=== PATIENT | female | born 1990 | race African-American/Black ===

== ENCOUNTER 2022-02-23 15:42 | Emergency (ER) | payer OTHER ==
[~2022-02-23] VITALS: Ht 157.5 cm; Wt 111.6 kg
[2022-02-23 15:42] VITALS: BP 187/104
[2022-02-23] MEDS ORDERED: LORAZEPAM 0.5 MG TABLET PO ONE (16:30)
[2022-02-23] MEDS ORDERED: LORAZEPAM 0.5 MG TABLET ONE (16:52)
[2022-02-23] MEDS ORDERED: LORA-259 PO ×2 (17:01→17:04)
== END 2022-02-23 17:22 | disposition home or self-care (01) ==
LOC: ER 15:53
DX: F41.9 Anxiety disorder, unspecified (principal); G47.00 Insomnia, unspecified; I10 Essential (primary) hypertension; Z79.899 Other long term (current) drug therapy

== ENCOUNTER 2022-02-25 11:38 | Emergency (ER) | payer OTHER ==
[~2022-02-25] VITALS: Ht 157.5 cm; Wt 113.4 kg
[~2022-02-25 11:38] MED LIST: LORA-259 PO
[2022-02-25] MEDS ORDERED: OLANZAPINE ZYDIS 5 MG TAB.RAPDIS PO ONE (12:00)
[2022-02-25] MEDS ORDERED: OLANZAPINE 5 MG TABLET ONE (12:10)
[2022-02-25 13:53] VITALS: BP 155/90
--- NOTE | 2022-02-25 13:53 | NUR ---
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
--- NOTE | 2022-02-25 13:53 | NUR ---
Pt given all MD ordered meds, no adverse side effects noted, given warm blanket and dim lights for comfort
--- NOTE | 2022-02-25 13:54 | NUR ---
pt D/C and transferred out , stable , ambulating stating she will call her mom for comfort
== END 2022-02-25 13:56 | disposition home or self-care (01) ==
LOC: ER 11:40
DX: F41.9 Anxiety disorder, unspecified (principal); I10 Essential (primary) hypertension; Z60.2 Problems related to living alone; Z79.899 Other long term (current) drug therapy

== ENCOUNTER 2022-03-06 12:04 | Emergency (ER) | payer OTHER ==
[~2022-03-06] VITALS: Ht 157.5 cm; Wt 106.6 kg
--- NOTE | 2022-03-06 12:22 | NUR ---
DR. BANKS AT BEDSIDE.
[2022-03-06 13:48] VITALS: BP 145/85
== END 2022-03-06 13:48 | disposition home or self-care (01) ==
LOC: ER 12:09
DX: I10 Essential (primary) hypertension (principal); T46.5X5A Adverse effect of other antihypertensive drugs, initial encounter; F41.9 Anxiety disorder, unspecified; Z60.2 Problems related to living alone; Z79.899 Other long term (current) drug therapy; Y92.89 Other specified places as the place of occurrence of the external cause